=== PATIENT | female | born 1995 ===

== ENCOUNTER 2017-04-08 08:47 | Emergency (ER) | payer BC, OTHER ==
[2017-04-08] MEDS ORDERED: Sodium Chloride 0.9% 1,000 ML IV ONE (08:55)
[2017-04-08] MEDS ORDERED: Magnesium Sulfate 1 gm in D5W 1 GM/100 ML BAG IVPB ONE (08:56)
[2017-04-08] MEDS ORDERED: Magnesium Sulfate 1 gm in D5W 1 GM/100 ML BAG IV ONE (08:56)
--- NOTE | 2017-04-08 08:58 | C.PDOC ---
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 NO IMPROVE W HOME MDI. PS HO PRIOR HOSPITALIZATIONS FOR ASTHMA, DENIES PRIOR INTUBATIONS. ROS LIMITED EXAM MOD/SEVERE DISTRESS LUNGS TACHYPNEA, RETRACTIONS B/L INSP/EXP WHEEZE 1 WORD SENTENCES DEC BS B/L CV RRR SINUS TACH SKIN WARM DRY; PIERCINGS X 2, CHEST WALL NO EDEMA REMAINDER NEG Time Seen by Provider: 04/08/17 08:53 Chief Complaint (Nursing): Shortness Of Breath History Per: Patient History/Exam Limitations: clinical condition Onset/Duration Of Symptoms: Hrs Current Symptoms Are (Timing): Still Present Severity: Moderate Past Medical History Vital Signs: Last Vital Signs Temp 98.2 F 04/08/17 09:12 Pulse 120 H 04/08/17 10:52 Resp 20 04/08/17 10:52 BP 96/55 L 04/08/17 10:52 Pulse Ox 100 04/08/17 11:27 - Medical History PMH: Asthma, Migraine Surgical History: Cholecystectomy - [facility] Procedures INFLUENZA VACCINATION (04/27/13) INTRAOPER CHOLANGIOGRAM (04/27/13) LAPAROSCOPIC CHOLECYSTECTOMY (04/27/13) VACCINATION NEC (04/27/13) Family History: States: Unknown Family Hx - Social History Hx Tobacco Use: No Hx Alcohol Use: No Hx Substance Use: No - Immunization History Hx Tetanus Toxoid Vaccination: No Hx Influenza Vaccination: No Hx Pneumococcal Vaccination: No Review Of Systems Respiratory: Positive for: Other (asthma exacerbation) Physical Exam - Physical Exam Appears: Non-toxic, Other (moderate to severe distress) Skin: Normal Color, Warm, Dry, Other (piercings x2) Head: Atraumatic, Normacephalic Eye(s): bilateral: Normal Inspection Cardiovascular: No Edema, Other (RRR Sinus Tachycardiac) Respiratory: Decreased Breath Sounds (decreased breath sounds bilaterally), Wheezing (inspiratory/ expiratory wheezing), Other (tachypnea, retractions bilaterally, 1 word sentences,) Neurological/Psych: Oriented x3, Normal Speech, Normal Motor, Normal Sensation ED Course And Treatment - Laboratory Results Result Diagrams: 04/08/17 10:46 04/08/17 10:46 ECG: Interpreted By Me ECG Rhythm: Sinus Tachycardia Rate From EC O2 Sat by Pulse Oximetry: 100 (RA) Pulse Ox Interpretation: Normal - Other Rad No standard instances X-Ray: Viewed By Me, Read By Radiologist Interpretation: HISTORY: SOB. COMPARISON: Chest x-ray performed 08/16/14. TECHNIQUE: Chest, one view. FINDINGS: LUNGS: No focal consolidation. Please note that chest x-ray has limited sensitivity for the detection of pulmonary masses. PLEURA: No significant pleural effusion identified. No definite pneumothorax . CARDIOVASCULAR: The cardiomediastinal silhouette appears within normal limits of size. OSSEOUS STRUCTURES: No acute osseous abnormality identified. VISUALIZED UPPER ABDOMEN: Unremarkable. OTHER FINDINGS: Two tiny rounded radiopaque densities project over the right upper thoracic spine, presumably external to the patient and not seen on prior study performed 08/16/14. Correlate clinically. IMPRESSION: No focal consolidation identified. Two tiny rounded radiopaque densities project over the right upper thoracic spine, presumably external to the patient and not seen on prior study performed 08/16/14. Correlate clinically. Progress - Re-Evaluation Re-evaluation Note: 04/08/17 09:46 IMPROVED COMPARED TO INITIAL. SINUS TACH @ 154 S/P DUONEB X 3. PS FEELS BETTER. RR IMPROVED. NO AUDIBLE WHEEZE - Data Reviewed Data Reviewed: Lab, Diagnostic imaging, Old records - Critical Care Citical Care: Excluding Proc Time Critical Care Time: 90 minutes Medical Decision Making Medical Decision Making: Plan: --Labs --IV Fluids Disposition Counseled Patient/Family Regarding: Studies Performed, Diagnosis, Need For Followup, Rx Given - Disposition Referrals: YOUR,PMD [Other] Disposition: HOME/ ROUTINE Disposition Time: 11:25 Condition: IMPROVED Prescriptions: Albuterol HFA [Ventolin HFA 90 mcg/actuation (8 g)] 1 puff IH Q4 #1 inhaler predniSONE [Prednisone] 60 mg PO DAILY #12 tab Instructions: Asthma (ED) Forms: [facility] (Finnish), Work Excuse - Clinical Impression Clinical Impression: Asthma exacerbation - Scribe Statement The provider has reviewed the documentation as recorded by the India Kerr Provider Attestation: All medical record entries made by the Darrenibabe were at my direction and personally dictated by me. I have reviewed the chart and agree that the record accurately reflects my personal performance of the history, physical exam, medical decision making, and the department course for this patient. I have also personally directed, reviewed, and agree with the discharge instructions and disposition.
[2017-04-08 09:15] VITALS: TEMP 98.2
[2017-04-08] MEDS ORDERED: Albuterol-Ipratrop 3 mg / 0.5 (3 ml) UD INH STA (09:16)
--- NOTE | 2017-04-08 09:32 | RAD ---
HISTORY: SOB COMPARISON: Chest x-ray performed 08/16/14 TECHNIQUE: Chest, one view. FINDINGS: LUNGS: No focal consolidation. Please note that chest x-ray has limited sensitivity for the detection of pulmonary masses. PLEURA: No significant pleural effusion identified. No definite pneumothorax . CARDIOVASCULAR: The cardiomediastinal silhouette appears within normal limits of size. OSSEOUS STRUCTURES: No acute osseous abnormality identified. VISUALIZED UPPER ABDOMEN: Unremarkable. OTHER FINDINGS: Two tiny rounded radiopaque densities project over the right upper thoracic spine, presumably external to the patient and not seen on prior study performed 08/16/14. Correlate clinically. IMPRESSION: No focal consolidation identified. Two tiny rounded radiopaque densities project over the right upper thoracic spine, presumably external to the patient and not seen on prior study performed 08/16/14. Correlate clinically.
[2017-04-08] MEDS ORDERED: Albuterol-Ipratrop 3 mg / 0.5 (3 ml) UD ONE (09:50)
[2017-04-08 10:53] VITALS: BP 96/55; PULSE 120; RESP 20
[2017-04-08 10:59] LABS: BASO # 0.1 K/uL (0.0-0.2); BASO % 0.9 % (0.0-2.0); EOS # 0.3 K/uL (0.0-0.7); EOS % 3.1 % (0.0-4.0); HEMOGLOBIN 13.9 g/dL (11.0-16.0); LYMPH # 0.7 K/uL (1.0-4.3); LYMPH % 8.2 % (20.0-40.0); MEAN CELL VOLUME 76.4 fL (81.0-99.0); MEAN CORPUSCULAR HEMOGLOBIN 25.4 pg (27.0-31.0); MEAN CORPUSCULAR HGB CONC 33.3 g/dL (33.0-37.0); MEAN PLATELET VOLUME 10.5 fL (7.2-11.7); MONO # 1.2 K/uL (0.0-0.8); MONO % 13.7 % (0.0-10.0); NEUT # 6.6 K/uL (1.8-7.0); NEUT % 74.1 % (50.0-75.0); NRBC % 0.1 % (0.0-2.0); PLATELET COUNT 207 K/uL (130-400); RBC 5.47 Mil/uL (3.80-5.20); RED CELL DISTRIBUTION WIDTH 15.4 % (11.5-14.5); WHITE BLOOD COUNT 8.9 K/uL (4.8-10.8)
[2017-04-08 11:14] LABS: BLOOD UREA NITROGEN 12 mg/dL (7-17); CALCIUM 9.4 mg/dl (8.6-10.4); GFR AFRICAN-AMERICAN > 60; GFR NON-AFRICAN AMERICAN > 60; MAGNESIUM 1.8 mg/dL (1.6-2.3)
[2017-04-08 11:27] VITALS: O2SAT 100
[2017-04-08 11:37] LABS: BASOPHIL 2 % (0-2); EOSINOPHIL 4 % (0-4); LYMPHOCYTE 6 % (20-40); MONOCYTE 14 % (0-10); NEUTROPHIL 75 % (50-75); PLATELET ESTIMATE NORMAL (NORMAL); TOTAL CELLS COUNTED 100
--- NOTE | 2017-04-09 23:21 | CARD ---
APPROVED REPORT EKG Measurement Heart [id number] <Conclusion> Sinus tachycardia ST & T wave abnormality, consider inferior ischemia Abnormal ECG
== END 2017-04-08 11:47 | disposition home or self-care (01) ==
LOC: C.ER 08:47
DX: J45.901 Unspecified asthma with (acute) exacerbation (principal)
CPT/HCPCS: 71045; 80048; 83735; 85025; 93005; 94640; 96361; 96365; 96372; 96375; 99285; J2930; J3105; J3475; J7040